=== PATIENT | female | born 1985 | race Caucasian/White ===

== ENCOUNTER 2016-12-19 10:07 | Emergency (ER) | payer SELFPAY ==
[2016-12-19 10:11] VITALS: BP 103/62; BMI 22.3
--- NOTE | 2016-12-19 10:23 | DR.GENAD ---
HPI - PCP Primary Care Physician: SHERI - HPI Comment HPI Comment: WORSE TODAY. NAUSEATED AND VOMITED ONCE. WEAK. - Complaint/Symptoms Chief Complaint Doctors Comments: FEVER, LOWER BACK PAIN, LOWER ABDOMINAL PAIN TIMES 4 DAYS. Chief Complaint:: PATIENT STATED SHE HAS BEEN RUNNING A FEVER AND HAVING BACK AND LOWER ABD. PAIN. HAS A BAD HEADACHE. HAS BEEN GOING ON FOR 3 DAYS. - Nurses notes reviewed Nurses Notes Review: Yes - Source History Provided: Patient - Mode of Arrival Mode of Arrival: Ambulatory - Timing Onset of Chief Complaint: 12/16/16 Came on: Suddenly - Duration Duration: Constant Duration: Days - Severity Severity: Moderate PMH - PMH Past Medical History: Yes Past Medical History: Anxiety Past Surgical History: Yes Surgical History: Ortho Surgery, Tonsillectomy - Family History History of Family Medical Conditions: Yes Family Medical History: Cancer, [place], Heart Failure, Hypertension - Social History Does patient currently use any type of tobacco product: Yes Have you used tobacco products in the last 12 months: Yes Type of Tobacco Use: Cigarettes Does any household member use tobacco: No Alcohol Use: None Do you use any recreational Drugs:: No (past user) Lives With: Family Lives Where: Home - infectious screening In the last 2 months have you had wt loss of >10#?: NO Have you had fever, night sweats or hemotysis?: No Have you traveled outside the country in the last 6 months?: No Isolation: Standard ROS - Review of Systems Constitutional: Fever, Weakness, Fatigue Eyes: No Symptoms Reported ENTM: No Symptoms Reported Respiratoy: No Symptoms Reported Cardiovascular: No Symptoms Reported Gastrointestinal/Abdominal: Abdominal Pain, Nausea Genitourinary: No Symptoms Reported Neurological: Weakness Musculoskeletal: Back Pain, Back Integumentary: No Symptoms Reported Hematologic/Lymphatic: No Symptoms Reported Endocrine: No Symptoms Reported All Other Systems: Reviewed and Negative PE - Vital Signs Vitals: Temperature 100.0 F Pulse Rate 119 Respiratory Rate 20 Blood Pressure 103/62 O2 Sat by Pulse Oximetry 100 - General Limitations: No Limitations General Appearance: Alert - Head Head Exam: Normal Inspection - Eyes Eye exam: Normal Appearance - ENT ENT Exam: Normal External Ear Exam External Ear Exam: Normal External Inspection TM/Canal Exam: Bilateral Normal Nose Exam: Normal Nose Exam Mouth Exam: Normal Inspection Throat Exam: Normal Inspection - Neck Neck Exam: Normal Inspection - Chest Chest Inspection: Symmetric Chest Wall Rise - Respiratory Respiratory Exam: Normal Lung Sounds Bilat Respiratory Exam: Bilateral Clear to Auscultation - Cardiovascular Cardiovascular Exam: Regular Rate, Normal Rhythm, Normal Heart Sounds - Abdominal Exam Abdominal Exam: Normal Bowel Sounds, Soft, Tenderness Abdominal Tenderness: RLQ, LLQ, Suprapubic - Extremities Extremities Exam: Normal Inspection - Back Back Exam: (R) CVA Tenderness, (L) CVA Tenderness - Neurologic Neurological Exam: Alert, Oriented X3 - Psychiatric Psychiatric Exam: Anxious - Skin Skin Exam: Normal Color [facility] - Additional Information Additional Information Obtained From: Family - Differential Diagnosis Differential Diagnosis: UTI, KIDNEY STONE, ABDOMINAL PAIN, LOWER BACK PAIN Course - Treatment Treatment: SEE ORDERS - Education/Counseling Education/Counseling: Patient, Family, Education Educated On: Treatment, Diagnosis ROR - Labs Reviewed Laboratory Results Reviewed?: Yes Result Diagrams: 12/19/16 10:45 12/19/16 10:45 Laboratory: 12/19/16 11:00 Urine,Clean Catch Urine Culture - Preliminary WBC 16.6 X10^3/uL (3.6-10.0) H 12/19/16 10:45 RBC 4.34 X10^6/uL (3.5-5.4) 12/19/16 10:45 Hgb 12.5 g/dL (12.0-16.0) 12/19/16 10:45 Hct 38.4 % (36.0-47.0) 12/19/16 10:45 MCV 88.5 fL (80.0-100.0) 12/19/16 10:45 MCH 28.8 pg (27.0-34.0) 12/19/16 10:45 MCHC 32.5 g/dL (33.0-35.0) L 12/19/16 10:45 RDW 14.7 % (11.6-16.5) 12/19/16 10:45 Plt Count 197 X10^3/uL (150.0-450.0) 12/19/16 10:45 MPV 9.3 fL (7.4-11.0) 12/19/16 10:45 Neut % 84.2 % (42.0-75.0) H 12/19/16 10:45 Lymph % 6.6 % (21.0-51.0) L 12/19/16 10:45 [place] % 8.3 % (0.0-13.0) 12/19/16 10:45 Eos % 0.1 % (0.9-2.9) L 12/19/16 10:45 Baso % 0.8 % (0.2-1.0) 12/19/16 10:45 Neut # 14.0 x10^3/uL (2.2-4.8) H 12/19/16 10:45 Lymph # 1.1 X10^3/uL (1.3-2.9) L 12/19/16 10:45 [place] # 1.4 x10^3/uL (0.3-0.8) H 12/19/16 10:45 Eos # 0.0 x10^3/uL (0.0-0.2) 12/19/16 10:45 Baso # 0.1 X10^3/uL (0.0-0.1) 12/19/16 10:45 Absolute Nucleated RBC 0.0 /100WBC 12/19/16 10:45 Sodium 137 mmol/L (136-145) 12/19/16 10:45 Corrected Sodium 138 mmol/L (136-145) 12/19/16 10:45 Potassium 3.4 mmol/L (3.5-5.1) L 12/19/16 10:45 Chloride 103 mmol/L (98-107) 12/19/16 10:45 Carbon Dioxide 22.5 mmol/L (21-32) 12/19/16 10:45 BUN 9 mg/dL (7-18) 12/19/16 10:45 Creatinine 0.92 mg/dL (0.55-1.02) 12/19/16 10:45 Est GFR (MDRD) Af Amer > 60 (>60) 12/19/16 10:45 Est GFR (MDRD) Non-Af > 60 (>60) 12/19/16 10:45 Glucose 123 mg/dL (65-99) H 12/19/16 10:45 Calcium 8.4 mg/dL (8.5-10.1) L 12/19/16 10:45 Corrected Calcium TNP 12/19/16 10:45 Total Bilirubin 0.30 mg/dL (0.2-1.0) 12/19/16 10:45 AST 28 Units/L (15-37) 12/19/16 10:45 ALT 54 Units/L (12-78) 12/19/16 10:45 Alkaline Phosphatase 74 Units/L (46-116) 12/19/16 10:45 Total Protein 7.9 g/dL (6.4-8.2) 12/19/16 10:45 Albumin 3.4 g/dL (3.4-5.0) 12/19/16 10:45 Globulin 4.5 g/dL (2.5-4.5) 12/19/16 10:45 Albumin/Globulin Ratio 0.8 Ratio (1.1-2.1) L 12/19/16 10:45 HCG, Qual Negative <10 mIU/mL 12/19/16 10:45 Specimen Type Clean catch urine 12/19/16 12:01 Urine Color Yellow (YELLOW) 12/19/16 12:01 Urine Appearance Hazy (CLEAR) 12/19/16 12:01 Urine pH 6.5 (5.0 - 8.0) 12/19/16 12:01 Ur Specific [place] 1.005 (1.000-1.030) 12/19/16 12:01 Urine Protein 1+ (NEGATIVE) 12/19/16 12:01 Urine Glucose (UA) Negative (NEGATIVE) 12/19/16 12:01 Urine Ketones Negative (NEGATIVE) 12/19/16 12:01 Urine Occult Blood 5+ (NEGATIVE) 12/19/16 12:01 Urine Nitrite Positive (NEGATIVE) 12/19/16 12:01 Urine Bilirubin Negative (NEGATIVE) 12/19/16 12:01 Urine Urobilinogen Normal (NORMAL) 12/19/16 12:01 Ur Leukocyte Esterase 3+ (NEGATIVE) 12/19/16 12:01 Urine RBC 0-2 /HPF (NEGATIVE) 12/19/16 12:01 Urine WBC 3-5 /HPF (NEGATIVE) 12/19/16 12:01 Ur Squamous Epith Cells Few /HPF (NEGATIVE) 12/19/16 12:01 Urine Bacteria Trace /HPF (NEGATIVE) 12/19/16 12:01 Ur Culture Indicated? No/not indicated 12/19/16 12:01 - Diagnosis Discharge Problem: Back pain Qualifiers: Back pain location: low back pain Chronicity: acute Back pain laterality: bilateral Sciatica presence: without sciatica Qualified Code(s): M54.5 - Low back pain UTI (urinary tract infection) Qualifiers: Urinary tract infection type: urethritis Qualified Code(s): N34.2 - Other urethritis Abdominal pain Qualifiers: Abdominal location: lower abdomen, unspecified Qualified Code(s): R10.30 - Lower abdominal pain, unspecified - Discharge Plan Disposition: HOME, SELF-CARE Condition: Stable Prescriptions: Ciprofloxacin HCl [CIPRO 500 MG TAB *] 500 mg PO Q12H #20 tab Ibuprofen [MOTRIN TAB 600 MG *] 600 mg PO TID PRN #20 tab PRN Reason: Pain/Inflammation - Follow ups/Referrals Follow ups/Referrals: NFD,None [Primary Care Provider] - 2 days Saturnino Adrian [STAFF PHYSICIAN] - 2 days - Instructions Instructions: Urinary Tract Infection, [id number], Back Pain, Adult, Easy-to- Read, Abdominal Pain, Adult, [id number] Additional Instructions: RETURN TO ED IF WORSE.
[2016-12-19] MEDS ORDERED: ZOFRAN INJ 4 MG VIAL IVP ONE (10:36)
[2016-12-19] MEDS ORDERED: DEMEROL INJ IVP ONE (10:36)
[2016-12-19] MEDS ORDERED: ZOFRAN INJ 4 MG VIAL ONE (10:45)
[2016-12-19] MEDS ORDERED: DEMEROL INJ ONE (10:46)
[2016-12-19 10:56] LABS: BASOPHILS # (AUTO) 0.1 X10^3/uL (0.0-0.1); BASOPHILS % (AUTO) 0.8 % (0.2-1.0); EOSINOPHILS % (AUTO) 0.1 % (0.9-2.9); HEMATOCRIT 38.4 % (36.0-47.0); HEMOGLOBIN 12.5 g/dL (12.0-16.0); LYMPHOCYTES # (AUTO) 1.1 X10^3/uL (1.3-2.9); LYMPHOCYTES % (AUTO) 6.6 % (21.0-51.0); MEAN CORPUSCULAR HEMOGLOBIN 28.8 pg (27.0-34.0); MEAN CORPUSCULAR HGB CONC 32.5 g/dL (33.0-35.0); MEAN CORPUSCULAR VOLUME 88.5 fL (80.0-100.0); MEAN PLATELET VOLUME 9.3 fL (7.4-11.0); MONOCYTES # (AUTO) 1.4 x10^3/uL (0.3-0.8); MONOCYTES % (AUTO) 8.3 % (0.0-13.0); NEUTROPHILS % (AUTO) 84.2 % (42.0-75.0); PLATELET COUNT 197 X10^3/uL (150.0-450.0); RED BLOOD COUNT 4.34 X10^6/uL (3.5-5.4); RED CELL DISTRIBUTION WIDTH 14.7 % (11.6-16.5); WHITE BLOOD COUNT 16.6 X10^3/uL (3.6-10.0)
[2016-12-19 11:07] LABS: ALANINE AMINOTRANSFERASE 54 Units/L (12-78); ALBUMIN 3.4 g/dL (3.4-5.0); ALKALINE PHOSPHATASE 74 Units/L (46-116); ASPARTATE AMINO TRANSFERASE 28 Units/L (15-37); BLOOD UREA NITROGEN 9 mg/dL (7-18); CALCIUM 8.4 mg/dL (8.5-10.1); CARBON DIOXIDE 22.5 mmol/L (21-32); CHLORIDE 103 mmol/L (98-107); COR NA(FOR HYPERGLY) 138 mmol/L (136-145); CREATININE 0.92 mg/dL (0.55-1.02); GLUCOSE 123 mg/dL (65-99); SODIUM 137 mmol/L (136-145); TOTAL PROTEIN 7.9 g/dL (6.4-8.2); eGFR BLACK RACES > 60 (>60); eGFR NON BLACK RACES > 60 (>60)
[2016-12-19 11:08] LABS: SERUM PREGNANCY TEST, QUAL NEGATIVE <10 mIU/mL
[2016-12-19] MEDS ORDERED: POTASSIUM CHLORIDE LIQ 20 MEQ UDC PO ONE (11:19)
[2016-12-19] MEDS ORDERED: TYLENOL 500 MG TAB EXTRA STRENGTH PO ONE (11:19)
[2016-12-19] MEDS ORDERED: POTASSIUM CHLORIDE LIQ 20 MEQ UDC ONE (11:42)
[2016-12-19] MEDS ORDERED: TYLENOL 500 MG TAB EXTRA STRENGTH ONE (11:42)
[2016-12-19 12:15] LABS: BILIRUBIN,URINE NEGATIVE (NEGATIVE); BLOOD/HEMOGLOBIN,URINE 5+ (NEGATIVE); GLUCOSE, URINE NEGATIVE (NEGATIVE); KETONES,URINE NEGATIVE (NEGATIVE); LEUKOCYTE ESTERASE ,URINE 3+ (NEGATIVE); NITRITES,URINE POSITIVE (NEGATIVE); PH,URINE 6.5 (5.0 - 8.0); PROTEIN,URINE 1+ (NEGATIVE); UROBILINOGEN,URINE NORMAL (NORMAL)
[2016-12-19 12:23] LABS: APPEARANCE,URINE HAZY (CLEAR); COLOR,URINE YELLOW (YELLOW); RBC,URINE 0-2 /HPF (NEGATIVE)
[2016-12-19 12:24] LABS: BACTERIA,URINE TRACE /HPF (NEGATIVE); SQUAMOUS EPITHELIAL CELL,UR FEW /HPF (NEGATIVE)
--- NOTE | 2016-12-19 12:35 | CT ---
HISTORY: Lower abdominal pain Study: CT abdomen and pelvis without contrast Comparison: None Technique: Multiple axial images of the abdomen and pelvis were obtained from the lung bases to the pubic symph ysis without the administration of IV contrast. Sagittal and coronal reformations were provided. Findings: The visualized portions of the lung bases are unremarkable. The liver, spleen, pancreas, kidneys, a nd adrenal glands are unremarkable in their CT appearance. The gallbladder is unremarkable in its CT appearance. No significant mesenteric lymphadenopathy or stranding can be observed. No free fluid or free air is seen within the abdomen. The appendix is normal . The uterus is unremarkable . Ther e is no adnexal mass. No bowel wall thickening or bowel dilatation is present. The colon is unremar kable. Specifically, there is no diverticulosis noted within the sigmoid colon. The urinary bladder is grossly unremarkable. The bony structures are grossly intact. IMPRESSION: 1. Negative CT of the abdomen and pelvis. Reported By:
[2016-12-19] MEDS ORDERED: ROCEPHIN VIAL 1 GM 1 GM in NS 50 ML IV + SPIKE MINIBAG* 50 ML IV ONE (12:52)
[2016-12-19] MEDS ORDERED: ROCEPHIN 1 GM IV PREMIX * OUT OF STOCK 50 ML IV ONE (12:56)
== END 2016-12-19 13:19 | disposition home or self-care (01) ==
LOC: ER 10:16
DX: N34.2 Other urethritis (principal); R10.84 Generalized abdominal pain; M54.5 Low back pain; B96.29 Other Escherichia coli [E. coli] as the cause of diseases classified elsewhere
CPT/HCPCS: 36415; 74176; 80053; 81001; 84703; 85025; 87086; 87088; 87186; 96365; 96374; 96375; 99283; A4222; J0696; J2175; J2405